=== PATIENT | female | born 1935 | race Caucasian/White ===

== ENCOUNTER 2017-09-18 10:19 | Outpatient (CLI) | payer OTHER ==
[~2017-09-18 10:19] MED LIST: ZITHROMAX PO
== END 2017-09-18 17:00 | disposition home or self-care (01) ==
LOC: RAD 10:19
DX: R10.13 Epigastric pain (principal)

== ENCOUNTER → 2017-09-23 | Outpatient (CLI) | payer OTHER ==
[~2017-09-23] VITALS: Ht 149.9 cm; Wt 73.5 kg
== END | disposition home or self-care (01) ==
LOC: OFIC 805 08:45
DX: H61.23 Impacted cerumen, bilateral (principal); H91.8X3 Other specified hearing loss, bilateral; H93.13 Tinnitus, bilateral; R22.1 Localized swelling, mass and lump, neck

== ENCOUNTER 2017-10-27 09:24 | Outpatient (CLI) | payer OTHER ==
[~2017-10-27] VITALS: Ht 121.9 cm; Wt 73.5 kg
== END 2017-10-27 09:45 | disposition home or self-care (01) ==
LOC: OFIC 805 09:24
DX: H93.13 Tinnitus, bilateral (principal); H90.3 Sensorineural hearing loss, bilateral

== ENCOUNTER 2017-11-18 10:06 | Outpatient (CLI) | payer OTHER ==
[~2017-11-18] VITALS: Ht 121.9 cm; Wt 73.5 kg
== END 2017-11-18 10:20 | disposition home or self-care (01) ==
LOC: OFIC 805 10:06
DX: H93.13 Tinnitus, bilateral (principal); H61.23 Impacted cerumen, bilateral; H90.3 Sensorineural hearing loss, bilateral